=== PATIENT | male | born 1960 | race Caucasian/White ===

== ENCOUNTER 2018-01-24 16:18 | Outpatient (CLI) | payer BC ==
--- NOTE | 2018-01-24 18:23 | ULT ---
DOPPLER VENOUS ULTRASOUND OF THE RIGHT LOWER EXTREMITY: INDICATION: Right foot edema and redness with a history of cellulitis of the right foot. TECHNIQUE: Boo scale, color Doppler, and vascular duplex with spectral analysis was performed of the deep venou s structures of both lower extremities. The common femoral vein, superficial femoral vein, popliteal vein, posterior tibial vein, proximal greater saphenous, and proximal profunda veins were assessed on the right. FINDINGS: There is normal compression, flow, and augmentation seen within the deep venous structures of the rig ht lower extremity. There are mildly prominent lymph nodes seen within the right inguinal region. IMPRESSION: 1. No evidence of deep vein thrombosis within the right lower extremity. 2. Mildly prominent lymph nodes within the right inguinal region may be reactive in nature. POS: [facility]
== END 2018-01-24 16:19 | disposition home or self-care (01) ==
LOC: SCSULT 16:18
PROVIDERS: ATTEND Podiatrist
DX: R60.0 Localized edema (principal); M79.661 Pain in right lower leg